=== PATIENT | male | born 1950 | race Caucasian/White ===

== ENCOUNTER 2018-01-28 11:34 | Outpatient (CLI) | payer OTHER ==
[~2018-01-28] VITALS: Ht 172.7 cm; Wt 90.9 kg
--- NOTE | ~2018-01-28 | HEMODYNAMI ---
PATIENT:YOLY WILSON MEDICAL RECORD: [id number] : 50 LOCATION:[facility] ADMISSION DATE: 01/28/18 Generatedon:01/28/201814:31 Patient name: YOLY WILSON Patient #: [id number] SSN: DO B: 1950 Date of study: 01/28/2018 Page: Of Hemodynamic Procedure Report Patient Data Patient Demographics Procedure consent was obtained First Name: YOLY Gender: Male Last Name: KATIE : 1950 [facility] Initial: LAKSHMI Age: 68 year(s) Patient #: [id number] Race: Unknown Additional ID: [id number] Contact details Address: [facility] [address] State: [place] City: [place] Zip code: [address] Past Medical History Allergies: No known allergies Admission Admission Data Admission Date: 01/28/2018 Admission Time: 11:34 Lab Results Lab Result Date: 01/28/2018 Lab Result Time: 12:25 Biochemistry Name Units Result Min Max BUN mg/dl 24 --(----)-* 7 18 Creatinine mg/dl 1.1 --(--*-)-- 0.6 1.3 CBC Name Units Result Min Max Hematocrit % 40.3 -*(----)-- 42 54 Hemoglobin g/dl 13.5 --(*---)-- 13.5 17.5 Procedure Procedure Types Cath Procedure Diagnostic Procedure LHC LHC w/Coronaries w/Grafts Procedure Description Procedure Date Procedure Date: 01/28/2018 Procedure Start Time: 14:11 Procedure End Time: 14:29 Procedure Staff Name Function Dandre Romo MD Performing Physician Sammy Bull RT Monitor Piero Hein RN Nurse Dahlia Lovell RT Scrub Procedure Data Cath Procedure Fluoroscopy Diagnostic fluoroscopy Total fluoroscopy Time: 2.9 time: 2.9 min min Diagnostic fluoroscopy Total fluoroscopy dose: 2.9 dose: 2.9 mGy mGy Contrast Material Contrast Material Type Amount (ml) Isovue 300 60 Entry Location Entry Primary Successful Side Size Upsize Upsize Entry Closure Succes sful Closure Location (Fr) 1 (Fr) 2 (Fr) Remarks Device Remarks Femoral Right 5 Fr Exoseal artery Estimated blood loss: 5 ml Diagnostic catheters Device Type Used For End Catheter Placement MULTIPACK JL 4.0 5Fr Procedure catheter DIAGNOSTIC IM 5Fr Procedure catheter ([id number]) MULTIPACK 3DRC 5Fr Procedure catheter Procedure Complications No complications Procedure Medications Medication Administration Route Dosage 0.9% NaCl I.V. 100 ml/hr Oxygen etCO2 Nasal cannula 2 l/min Heparin Flush Bag added to field 2 bags (1000units/500ml NS) Lidocaine 2% added to field 20 Versed I.V. 1 mg Fentanyl I.V. 50 mcg Versed I.V. 1 mg Fentanyl I.V. 50 mcg Hemodynamics Rest HGB: 13.5 (g/dl) Heart Rate: 81 (bpm) Pressure Samples Time Site Value (mmHg) Purpose Heart Use Rate(bpm) 14:22 LV 167/6,25 Snapshot 94 14:22 AO 164/90(123) Pullback 92 14:22 LV 165/4,22 Pullback 92 Gradients Valve Time Site 1 Site 2 Mean SEP/DFP Peak To Heart Use (mmHg) (sec/min) Peak Rate (mmHg) (bpm) Aortic 14:22 LV AO 10 19 1 92 165/4,22 164/90(123) Calculations Valve P-P Mean Valve Index Valve Source Name Gradient Area Flow (cm2) Aortic 1 10 1 10 Snapshots Pre Cath Intra NCS Post Cath Vital Signs Time Heart Resp SPO2 etCO2 NIBP (mmHg) Rhythm Pain Sedation Rate (ipm) (%) (mmHg) Status Level (bpm) 13:59:06 71 12 98 39.6 156/97(139) NSR 0 (11) 10(A) , No pain 14:04:38 83 15 96 42.6 167/107(144) NSR 0 (11) 10(A) , No pain 14:09:31 87 15 96 49.4 162/102(142) NSR 0 (11) 10(A) , No pain 14:14:21 88 12 97 43.4 150/98(137) NSR 0 (11) 10(A) , No pain 14:19:10 90 13 97 22.4 157/107(131) NSR 0 (11) 9(A) , No pain 14:24:01 90 13 96 0 168/111(133) NSR 0 (11) 9(A) , No pain 14:28:50 90 13 97 42.6 165/103(139) NSR 0 (11) 9(A) , No pain Medications Time Medication Route Dose Verified Delivered Reason Notes Eff ectiveness by by 14:02:10 0.9% NaCl I.V. 100 Piero Piero Per ml/hr Lorigan Lorigan physician RN RN 14:02:21 Oxygen etCO2 2 Piero Piero Per Nasal l/min Lorigan Lorigan physician cannula RN RN 14:02:32 Heparin Flush added 2 Piero Piero used for Bag to bags Lorigan Lorigan procedure (1000units/500ml field RN RN NS) 14:02:45 Lidocaine 2% added 20ml Piero Piero for local to vial Lorigan Lorigan anesthetic field RN RN 14:11:19 Versed I.V. 1 mg Piero Piero for Lorigan Lorigan sedation RN RN 14:11:28 Fentanyl I.V. 50 Piero Piero for mcg Lorigan Lorigan sedation RN RN 14:16:14 Versed I.V. 1 mg Piero Piero for Lorigan Lorigan sedation RN RN 14:16:21 Fentanyl I.V. 50 Piero Piero for mcg Lorigan Lorigan sedation RN manager lsw Log Time Note 13:37:48 Time tracking: Regular hours (M-F 7:00 - 5:00) 13:37:52 Plan of Care:Hemodynamics will remain stable., Cardiac rhythm will remain stable., Comfort level will be maintained., Respiratory function will remain adequate., Patient/ family verbilizes understanding of procedure., Procedure tolerated without complication., Recovers from procedure without complications.. 13:38:31 Dahlia Counts RT(R) sent for patient. Start room use. 13:51:44 Patient received from Pre/Post Procedure Room to CCL 1 Alert and oriented. Tansferred to table in Supine position. 13:51:45 Warm blankets applied, and leatha hugger turned on for patient comfort. 13:51:46 Correct patient and procedure confirmed by team. 13:51:48 Signed procedure consent form obtained from patient. 13:51:48 ECG and BP/O2 sat monitors applied to patient. 13:52:01 H&P Date Dictated: 01/08/2018 Within 30 days and on chart., H&P Addendum completed by physician on day of procedure. (MUST COMPLETE FOR ALL OUTPATIENTS). 13:52:02 Pre-procedure instructions explained to patient. 13:52:03 Pre-op teaching completed and patient verbalized understanding. 13:52:04 Family in waiting room. 13:52:05 Patient NPO since Midnight. 13:52:13 Patient allergic to No known allergies 13:58:01 Vital chart was started 14:02:10 0.9% NaCl 100 ml/hr I.V. was administered by Piero Hein RN; Per physician; 14:02:21 Oxygen 2 l/min etCO2 Nasal cannula was administered by Piero Hein RN; Per physician; 14:02:32 Heparin Flush Bag (1000units/500ml NS) 2 bags added to field was administered by Piero Hein RN; used for procedure; 14:02:45 Lidocaine 2% 20ml vial added to field was administered by Piero Hein RN; for local anesthetic; 14:03:31 Baseline sample Acquired. 14:03:52 Rhythm: sinus rhythm 14:03:54 Full Disclosure recording started 14:04:02 Is the patient allergic to Iodine/contrast media? No. 14:04:11 Is patient on blood thinner?Yes 14:04:13 ACC The patient was administered the following blood thiners within the last 24 hours: ACCPlavix 14:04:16 Patient diabetic? No. 14:04:19 Previous problem with sedation/anesthesia? No ? 14:04:20 Snore? Yes 14:04:21 Sleep apnea? Yes 14:04:23 Deviated septum? No 14:04:24 Opens mouth fully? Yes 14:04:24 Sticks out tongue? Yes 14:04:28 Dentures? No ? 14:04:29 Airway obstruction? No ? 14:04:32 Pre procedure: right dorsailis pedis pulse 2+ Normal; easily identifiable; not easily obliterated 14:04:35 Patient pain scale 0/10 ?. 14:04:41 IV patent on arrival in left wrist with 0.9% NaCl at [facility]. 14:05:37 Lab Result : BUN 24 mg/dl 14:05:37 Lab Result : Creatinine 1.1 mg/dl 14:05:37 Lab Result : Hemoglobin 13.5 g/dl 14:05:37 Lab Result : Hematocrit 40.3 % 14:05:39 Lab results completed and on chart. 14:05:42 Right groin area was prepped with chlora-prep and draped in sterile fashion 14:05:43 Alarms reviewed by R. N. 14:05:43 Sharps counted by scrub and verified by R.N. 14:05:45 Use device set Femoral Dx 14:05:46 ACIST Syringe (97254) opened to sterile field. 14:05:46 Bag Decanter (2002S) opened to sterile field. 14:05:47 Medline Cath Pack ([id number]) opened to sterile field. 14:05:48 ACIST Hand Control (20775) opened to sterile field. 14:05:48 ACIST Manifold (95912) opened to sterile field. 14:05:49 DIAGNOSTIC Multipack 5Fr catheter set ([id number]) opened to sterile field. 14:05:49 Tegaderm 4 x 4 (1626W) opened to sterile field. 14:05:51 DIAGNOSTIC WIRE .035 260cm J wire (167834) opened to sterile field. 14:05:53 PERCUTANEOUS ENTRY 19GA needle opened to sterile field. 14:06:22 SHEATH Prelude 5Fr 0.035 ([id number]-1H-92-035) opened to sterile field. 14:09:51 Zero performed for pressure channel P1 14:09:59 Physician arrived 14::59 --------ALL STOP TIME OUT------ 14:09:59 Final Timeout: patient, procedure, and site verified with staff and physician. All members of the team are in agreement. 14:10:01 Right groin site verified by team. 14:10:04 Physical assessment completed. ASA score P 2 - A patient with mild systemic disease as per Dandre Romo MD. 14:10:06 Sedation plan: IV Moderate Sedation Medication:Versed, Fentanyl 14:11:19 Versed 1 mg I.V. was administered by Piero Hein RN; for sedation; 14:11:28 Fentanyl 50 mcg I.V. was administered by Piero Hein RN; for sedation; 14:11:53 Procedure started. 14:11:56 Local anesthetic to right femoral artery with Lidocaine 2% by Dandre Romo MD.INITIAL ACCESS ONLY 14:12:16 A 5 Fr sheath was inserted into the Right Femoral artery 14:14:21 A MULTIPACK JL 4.0 5Fr catheter was advanced over the wire and used for Procedure. 14:15:57 LCA angiography performed. 14:16:14 Versed 1 mg I.V. was administered by Piero Hein RN; for sedation; 14:16:21 Fentanyl 50 mcg I.V. was administered by Piero Hein RN; for sedation; 14:17:26 Catheter exchanged over wire. 14:17:36 A DIAGNOSTIC IM 5Fr catheter ([id number]) was advanced over the wire and used for Procedure. 14:19:09 HAUSER to LAD angiography performed. 14:19:48 Catheter exchanged over wire. 14:20:34 A MULTIPACK 3DRC 5Fr catheter was advanced over the wire and used for Procedure. 14:20:37 SVG to RCA occluded. 14:22:13 LV gram done using [place] 14:22:16 Injector settings: Ml/sec: 10, Volume: 20, 14:22:29 EF : 30 % 14:25:22 Catheter removed. 14:25:24 EXOSEAL 5Fr (EX500) opened to sterile field. 14:25:34 Sheath removed intact; hemostasis achieved with Exoseal to the Right Femoral artery. 14:25:35 Procedure ended.(Physican Out) 14:26:01 Fluoroscopy time 02.90 minutes. 14:26:23 Flurop Dose total: 2.9 14::23 Fluoroscopy dose: 2.9 mGy 14:26:27 Contrast amount:Isovue 300 60ml. 14:26:50 Sharps counted by scrub and verified by R.N. 14:27:18 Insertion/operative site no bleeding no hematoma. 14:27:20 Post-op/insertion site Right Femoral artery dressed using a 4 x 4 and Tegaderm. 14:27:24 Post right femoral artery:stable, soft, clean and dry 14:27:26 Post Procedure Pulses reassessed and unchanged 14:27:28 Post-procedure physical assessment completed. ASA score P 2 - A patient with mild systemic disease as per Dandre Romo MD. 14:27:32 Post procedure rhythm: unchanged. 14:27:35 Estimated blood loss: 5 ml 14:27:36 Post procedure instruction explained to patient.Patient verbalizes understanding. 14:27:40 Patient needs reinforcement of post procedure teaching. 14:28:05 Procedure type changed to Cath procedure, Diagnostic procedure, LHC, LHC w/Coronaries w/Grafts 14:29:24 Procedure and supply charges have been captured, reviewed, submitted and are correct. 14:29:27 Procedure Complication : No complications 14:29:39 Vital chart was stopped 14:29:40 See physician's report for complete and final results. 14:29:42 Report given to Pre/Post Procedure Room. 14:29:47 Patient transfered to Pre/Post Procedure Room with Stretcher. 14:29:52 Procedure ended. 14:29:52 Full Disclosure recording stopped 14:30:02 End room use (Document Last) Device Usage Item Name Manufacture Quantity Catalog Number Hospital Part Current M inimal Lot# / Charge Number Stock Stock Serial# Code ACIST Syringe Acist 1 30136 508189 [id number] [id number] 2 0 (02672) [employer] Bag Decanter Microtek 1 2001S 850749 99701 822298 5 (2001S) Medical Inc. Medline Cath Cardinal 1 [id number] 997605 75777 460510 5 Pack Health ([id number]) ACIST Hand Acist 1 33850 630941 001788 160063 5 Control (62640) [employer] ACIST Manifold Acist 1 53019 864689 313811 889771 5 (61161) [employer] DIAGNOSTIC Cardinal 1 [id number] 033681 60595 197557 3 0 Multipack 5Fr Health catheter set ([id number]) Tegaderm 4 x 4 3M 1 1626W 973813 530232 020704 5 (1626W) DIAGNOSTIC WIRE St Armen 1 036926 002480 388947 214037 3 0 .035 260cm J wire (318121) PERCUTANEOUS [employer] Medical 1 F51104 006011 950512 5 ENTRY 19GA needle SHEATH Prelude Merit 1 [id number]-[id number] 263272 401864 895487 5 5Fr 0.035 Medical ([id number]-7L-47-035) MULTIPACK JL Cardinal 1 [id number] 5 4.0 5Fr Health catheter DIAGNOSTIC IM Cardinal 1 [id number] 763919 873872 578399 5 5Fr catheter Health ([id number]) MULTIPACK 3DRC Cardinal 1 879899 5 5Fr catheter Health EXOSEAL 5Fr Cardinal 1 EX500 803683 300370 191328 1 0 (EX500) Health Signature Audit [place] Stage Time Signature Unsigned Intra-Procedure 01/28/2018 Sammy Bull 2:30:57 PM RT(R) Signatures Monitor : Sammy Bull RT Signature : Date : Time : [address] [place] [address]
[~2018-01-28 11:34] MED LIST: BAYER ASPIRIN325 MG PO; BAYER CHEWABLE81 MG PO; BRILINTA90 MG PO; KLONOPIN0.5 MG PO; ZOLOFT100 MG PO
[2018-01-28 12:38] LABS: BASOPHILS 0.5 % (0-2); EOSINOPHILS 3.4 % (0-7); HEMATOCRIT 40.3 % (42.0-54.0); HEMOGLOBIN 13.5 g/dL (13.5-17.5); IMMATURE GRANULOCYTES 0.3 % (0-5); LYMPHOCYTES 15.6 % (15-50); MCH 29.9 pg (26.0-34.0); MCHC 33.5 g/dL (31.0-37.0); MCV 89.4 fL (80.0-100.0); MEAN PLATELET VOLUME 10.4 fL (7.4-10.4); MONOCYTES 6.9 % (2-11); NEUTROPHILS 73.3 % (40-80); PLATELET COUNT 164 10x3/uL (130-400); RBC 4.51 10x6/uL (4.20-6.10); RDW 14.1 % (11.5-14.5)
[2018-01-28] MEDS ORDERED: PLAVIX75 MG PO (12:39)
[2018-01-28] MEDS ORDERED: FLOMAX0.4 MG PO (12:40)
[2018-01-28] MEDS ORDERED: COREG 3.1253.125 MG PO (12:40)
[2018-01-28] MEDS ORDERED: LISINOPRIL10 MG PO (12:41)
[2018-01-28 12:46] VITALS: BP 144/89; Ht 172.7 cm; Wt 90.9 kg
[2018-01-28 12:48] LABS: ANION GAP 10.5 mmol/L (8-16); CALCIUM 8.7 mg/dL (8.5-10.1); CARBON DIOXIDE 27.5 mmol/L (21.0-32.0); CREATININE - SERUM 1.1 mg/dL (0.6-1.3)
== END 2018-01-28 16:50 | disposition home or self-care (01) ==
LOC: D.CATH 11:34
PROVIDERS: Internal Medicine Cardiovascular Disease
DX: I25.10 Atherosclerotic heart disease of native coronary artery without angina pectoris (principal); Z95.5 Presence of coronary angioplasty implant and graft; Z95.1 Presence of aortocoronary bypass graft; Z01.812 Encounter for preprocedural laboratory examination